=== PATIENT | female | born 1980 | race Caucasian/White ===

== ENCOUNTER 2020-09-17 08:39 | Emergency (ER) | payer OTHER ==
--- OUTSIDE RECORDS SUMMARY | 2020-09-17 08:42 | XMS REPORT | Continuity of Care Document ---
:1980 Author Organization [facility] t Address [address] [place] [address] Care Team Providers Name Role Phone Samy Saab Primary Care Physician Unavailable Liu FIGUEROAP Attending Clinician Pob1, Care Clinic Attending Clinician Unavailable JOSIAH Attending Clinician Unavailable Devora GARCIA Attending Clinician ELIO MOON Attending Clinician Unavailable ELIO MOON Admitting Clinician Unavailable Problems Condition Condition Condition Status Onset Resolution Last Treating Co mments Source Name Details Category Date Date Treatment Clinician Date History of History of Problem Resolve [facility] anxiety anxiety d ity of disorder disorder [place] [facility] History of History of Problem Resolve [facility] attention attention d ity of deficit deficit [place] hyperactiv hyperactiv Ph ysici ity ity ans disorder disorder (ADHD) (ADHD) History of History of Problem Resolve Univers Eosinophil Eosinophil d it y of ic ic [place] esophagiti esophagiti Ph ysici s s ans History of History of Problem Resolve Univers esophageal esophageal d it y of reflux reflux [place] [facility] History of History of Problem Resolve Univers hypothyroi hypothyroi d it y of dism dism [place] [facility] Breast Breast Problem Active Univers mass, mass, ity of right right [place] [facility] Allergies, Adverse Reactions, Alerts Allergy Allergy Status Severity Reaction(s) Onset Inactive Treating Comm ents Source Name Type Date Date Clinician Egg Propensi Active Itching, 2019-[address] [facility] to Nausea And 5-15 [facility] - adverse Vomiting 00:00: Medical reaction 00 Center s Peanut Propensi Active Other (See Per [facility] to Comments) 15 allergy [facility] - adverse 00:00: testing Medical reaction 00 Center s Milk Propensi Active Itching, [facility] to Nausea And 4-01 [facility] - ng adverse Vomiting 00:00: Medical Products reaction 00 Center s Lactase Drug Active Itching VOMITING [facility] Allergy 16 [facility] - 00:00: Medical 00 Center Other Propensi Active EGG [facility] ty to 08-09 YOLK-ITCH [facility] - adverse 00:00: ING AND Medical reaction 00 VOMITING Center s Hydrocod Drug Active Itching WIDE [facility] one-Acet Allergy 08-09 AWAKE-"WI [facility] - aminophe 00:00: RED" Medical n 00 Center Family History Family Member Diagnosis Comments Start Date Stop Date Source Mother Family history of [facility] [place] malignant neoplasm of Phy sicians breast Natural father Unremarkable [facility] History Social Habit Start Date Stop Date Quantity Comments Source History [facility] - Alcohol Std Drinks Medica l [place] History [facility] - Alcohol Binge Medical [facility] ter Sex Assigned At [facility] Tobacco use and 2018-11-10 2018-11-10 Never used [facility] - exposure 00:00:00 00:00:[address] [facility] Alcohol intake 2018-11-10 2018-11-10 [facility] 00:[facility] 00:00:00 non-drinker of Medical nter alcohol (finding) History SDWY 2018-11-05 2018-11-[address] [facility] - Alcohol Frequency 00:00:00 00:00:[address] [facility] Smoking Status Start Date Stop Date Source Never smoker [facility] M edical [place] Medications Ordered Filled Start Stop Current Ordering Indication Dosage Frequency Signature Comments Components Source Medication Medication Date Date Medication? Clinician (SIG) Name Name potassium Yes 8meq QD Take [address] chloride 5-20 by mouth [facility] - (KLOR-CON) 09:22: daily. Medic al 8 MEQ CR 46 [place] tablet dextroamphe 2019-0 Yes [id number] Take by [facility] tamine-amph 5-20 [id number] mouth 3 [facility] - etamine 09:22: 3D (three) Medical (AMPHETAMIN 46 times Center E-DEXTROAMP daily. HETAMINE) 20 mg Tab cetirizine Yes 10mg QD Take [address] (ZYRTEC) 10 5-20 by mouth [facility] - MG tablet 09:22: daily. Medica l 46 Center pantoprazol 0 Yes 40mg Q.5D Take [address] [facility] e 5-20 by mouth 2 [facility] - (PROTONIX) 09:22: (two) Medica l 40 MG 46 times Center tablet daily. medroxyPROG Yes 150mg Inject [address] ESTERone 5-20 mg [facility] - (DEPO-PROVE 09:22: intramuscu Medical RA) 150 46 larly Center mg/mL every 3 injection (three) months. escitalopra Yes 10mg QD Take [address] m oxalate 5-20 by mouth [facility] - (LEXAPRO) 09:22: daily. Medica l 10 MG 46 Center tablet thyroid,por Yes 225mg QD Take [address] k (ARMOUR 5-20 mg by [facility] - THYROID 09:22: mouth Medical ORAL) 46 daily. Center ALPRAZolam Yes .5mg Take 0.[address] (XANAX) 0.5 5-20 mg by [facility] - MG tablet 09:22: mouth as Medi papo 46 needed for Center Anxiety. Synthroid Synthroid Yes Unive rs TABS TABS [facility] [place] [facility] Zyrtec TABS Zyrtec TABS Yes U nivers [facility] [place] [facility] Protonix 40 Protonix 40 Yes U nivers MG Oral MG Oral ity of Tablet Tablet [place] Delayed Delayed Physici Release Release ans Adderall Adderall Yes Univers TABS TABS [facility] [place] [facility] Xanax TABS Xanax TABS Yes Uni [facility] [place] [facility] Vital Signs Vital Name Observation Time Observation Value Comments Source BP Systolic 2019-02-09 09:16:00 152 mm[Hg] Universi ty [facility] Physician s BP Diastolic 2019-02-09 09:16:00 93 mm[Hg] [facility] [place] Phys[facility] Height 2019-02-09 09:16:00 67.5 [in_us] [facility] Physician s Weight 2019-02-09 09:16:00 239.6 [lb_av] [facility] Physician s Body Mass Index 2019-02-09 09:16:00 36.97 kg/m2 Univ rsity [facility] [place] Physician s Temperature 2019-02-09 09:16:00 97 [degF] [facility] Physician s Heart Rate 2019-02-09 09:16:00 129 /min [facility] Physician s Procedures Procedure Date / Time Performing Clinician Source Performed History of Cholecystectomy [facility] Laparoscopic Physicians History of Tonsillectomy [facility] Physicians History of Back Surgery [facility] Physicians Plan of Care Planned Activity Planned Date Details Comments Source Future Scheduled 2020-02-[address] [facility] - Test 00:00:00 (#1) [code = [facility] INFLUENZA VACCINE (#1)] Future Scheduled 2003-12-[address] [facility] - Test 00:00:00 malignant neoplasm Medical C enter of cervix (procedure) [code = 453169982] Future Scheduled [address] [facility] - Test 00:00:00 (procedure) [code = [facility] [id number]] Encounters Start End Encounter Admission Attending Care Care Encounter Source Date/Time Date/Time Type Type Clinicians Facility Department ID 2020-01-09 2020-01-09 [facility] [id number] 14:06:00 23:59:00 Encounter Venita Morejon [id number] [place] [id number] [facility] [id number] 2020-01-09 2020-01-09 Urgent Pob1, Acute [facility] [id number] 13:16:53 14:34:16 [facility] [id number] [place] [id number] [place] [id number] nal [address] 2019-12-17 2019-12-17 Urgent Pob1, Acute [facility] [id number] 15:36:18 16:27:29 [facility] [id number] [place] [id number] Profess [phone] nal [address] 2019-02-09 2019-02-09 Appointmen JOSIAH [facility] [id number] Univers 09:30:00 09:30:00 elisabeth MUELLER M.D. Surgery - ity of [facility] Avis Bynum M.D. [facility] 2019-01-08 2019-01-08 Office YENY Lozoya [id number] 08:23:44 12:54:11 Visit Chriss AMBULATOR [id number] Y [id number] Results Test Description Test Time Test Comments Results Result [facility] e Comments TISSUE EXAM 2018-11-26 Surgical Pathology Report 10:09:00 Case: [id number] Authorizing Provider: Gladsy Moon MD Collected: 11/07/2018 1345 Ordering Location: [facility] Endoscopy Received: 11/07/2018 1517 Services Pathologist: Tyron Hong MD Specimens: A) - Duodenum, bx B) - Biopsy, Gastric, bx C) - Distal Esophagus, distal esophagus bx D) - Biopsy, Mid-esophagus, bx E) - Proximal Esophagus, proximal esoph bx Special stains for fungal organisms (GMS, PAS) performed on block C1 (distal esophageal biopsy) are NEGATIVE.Addendum electronically signed by Tyron Hong MD on 11/26/2018 at 10:09 AMPART A DUODENUM, BIOPSY:FOCALLY ACTIVE DUODENITIS.THE VILLOUS ARCHITECTURE IS PREDOMINANTLY PRESERVED.NEGATIVE FOR INCREASED EPITHELIAL LYMPHOCYTES, GRANULOMAS, DYSPLASIA OR INVASIVE CARCINOMA.PART B GASTRIC BIOPSY:ANTRAL AND OXYNTIC MUCOSA WITH MILD NONSPECIFIC REACTIVE GASTROPATHY.NEGATIVE FOR INTESTINAL METAPLASIA, DYSPLASIA, OR INVASIVE CARCINOMA.WARTHIN STARRY STAIN FOR HELICOBACTER IS NEGATIVE.PART C DISTAL ESOPHAGEAL BIOPSY:SQUAMOUS MUCOSA WITH CHRONIC INFLAMMATION AND REACTIVE FEATURES.NEGATIVE FOR INCREASED EOSINOPHILS, DYSPLASIA, OR INVASIVE CARCINOMA.SPECIAL STAINS FOR FUNGAL ORGANISMS PENDING, ADDENDUM REPORT TO FOLLOW.PART D MID-ESOPHAGEAL BIOPSY:SQUAMOUS MUCOSA WITHOUT SIGNIFICANT HISTOPATHOLOGIC ALTERATION.NEGATIVE FOR INCREASED EOSINOPHILS, DYSPLASIA, OR INVASIVE CARCINOMA.PART E PROXIMAL ESOPHAGEAL BIOPSY:SQUAMOUS MUCOSA WITHOUT SIGNIFICANT HISTOPATHOLOGIC ALTERATION.NEGATIVE FOR INCREASED EOSINOPHILS, DYSPLASIA, OR INVASIVE CARCINOMA. Signing Pathologist Direct Phone Line: [phone] y signed by Tyron Hong MD on 11/11/2018 at 2:12 [id number], [id number] with esophagitis, eosinophilic esophagitisA. Duodenum biopsy; B. Gastric biopsy; C. Distal esophagus biopsy; D. Mid esophagus biopsy; E. Proximal esophagus biopsyThe specimen is received in five containers each labeled with the patient's information and received in formalin. Part A is received additional labeled "duodenum" and contains multiple pieces of bernal-yellow to brown tissue fragments measuring 0.4 x 0.3 x 0.3 cm in aggregate. The specimen is submitted in its entirety following filtration into a single cassette. Part B is received additional labeled "gastric biopsy" and contains two pieces of bernal-yellow to brown fragmented tissue each measuring 0.3 x 0.3 x 0.2 cm. The specimen is submitted in its entirety following filtration into a single cassette. Part C is received additional labeled "distal esophagus" and contains a single bernal-pink irregular tissue measuring 0.2 x 0.2 x 0.1 cm. The specimen is submitted in its entirety following filtration into a single cassette. Part D is received additional labeled "mid esophagus biopsy" and contains a 0.4 x 0.2 x 0.1 cm bernal-red irregular fragment of tissue that is submitted in its entirety in a single cassette following filtration.Part E is received additional labeled "proximal esophagus" and contains a single bernal-pink irregular tissue fragment measuring 0.3 x 0.2 x 0.1 cm. The specimen is submitted in its entirety following filtration into a single cassette. REc/plPERFORMED. The interpretation of this case included the use of immunohistochemistry or special stains.BLOCK B1- JORDAN STARRYBLOCK C1- GMSControl Slides Examined: In-house known positive controls were evaluated along with the test tissue. These control slides run alongside of the patients sample show appropriate staining. Internal positive and negative controls when available are evaluated Immunohistochemistry technical testing was performed at [facility], Pathology Laboratory where it was developed and its performance characteristics were determined. It has not been cleared or approved by the U.S. Food and Drug Administration. The FDA has determined that such clearance or approval is not necessary. The test is used for clinical purposes. It should not be regarded as investigational or for research. This laboratory is certified under the Clinical Laboratory Improvement Amendments of 1988 (CLIA-88) as qualified to perform high complexity clinical laboratory testing.
[2020-09-17 10:56] LABS: SARS-COV-2 RT PCR POSITIVE (NEGATIVE)
--- NOTE | 2020-09-17 11:01 | ER ---
Nurse's Notes [facility] Name: Ash Shin Age: 39 yrs Sex: Female : 1980 Arrival Date: 09/17/2020 Time: 08:43 Bed 14 Private MD: Diagnosis: Coronavirus infection, unspecified Presentation: 09/17 08:53 Chief complaint: Patient states: loss of sense of smell and taste this morning, no iw known exposure. Coronavirus screen: loss of taste or smell. Ebola Screen: Patient negative for fever greater than or equal to 101.5 degrees Fahrenheit, and additional compatible Ebola Virus Disease symptoms Patient denies exposure to infectious person. Patient denies travel to an Ebola-affected area in the 21 days before illness onset. No symptoms or risks identified at this time. Initial Sepsis Screen: Does the patient meet any 2 criteria? No. Patient's initial sepsis screen is negative. Does the patient have a suspected source of infection? No. Patient's initial sepsis screen is negative. Risk Assessment: Do you want to hurt yourself or someone else? Patient reports no desire to harm self or others. Onset of symptoms was September 17, 2020. 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 - Social history:: Smoking status: Patient denies any tobacco usage or history of. - Family history:: not pertinent. - Hospitalizations: : No recent hospitalization is reported. Screenin:45 Abuse screen: Denies threats or abuse. Nutritional screening: No deficits noted. bw Tuberculosis screening: No symptoms or risk factors identified. Fall Risk None identified. Assessment: 08:45 General: Appears in no apparent distress. Behavior is calm, cooperative, appropriate bw for age. Pain: Denies pain. Neuro: No deficits noted. Cardiovascular: No deficits noted. Respiratory: No deficits noted. GI: No deficits noted. : No deficits noted. EENT: Reports Loss of taste and smell beginning this AM. . Derm: No deficits noted. Musculoskeletal: No deficits noted. 09:52 Reassessment: Patient appears in no apparent distress at this time. No changes from bw previously documented assessment. Patient and/or family updated on plan of care and expected duration. Pain level reassessed. Patient is alert, oriented x 3, equal unlabored respirations, skin warm/dry/pink. 10:54 Reassessment: Patient appears in no apparent distress at this time. No changes from bw previously documented assessment. Patient and/or family updated on plan of care and expected duration. Pain level reassessed. Patient is alert, oriented x 3, equal unlabored respirations, skin warm/dry/pink. Vital Signs: 08:53 BP 109 / 86; Pulse 92; Resp 16; Temp 98.2; Pulse Ox 100% on R/A; Weight 108.86 kg; iw Height 5 ft. 8 in. (172.72 cm); Pain 0/10; 09:45 BP 113 / 70; Pulse 74; Resp 18; Pulse Ox 100% on R/A; Pain 0/10; bw 10:53 BP 125 / 84; Pulse 60; Resp 18; Pulse Ox 100% on R/A; bw 08:53 Body Mass Index 36.49 (108.86 kg, 172.72 cm) ED Course: 08:43 Patient arrived in ED. mr 08:45 Patient has correct armband on for positive identification. Bed in low position. Call bw light in reach. Side rails up X 1. Pulse ox on. NIBP on. Warm blanket given. 08:45 No provider procedures requiring assistance completed. Patient did not have IV access bw during this emergency room visit. 08:48 Javier Lui MD is Attending Physician. rn 08:56 Triage completed. iw 08:58 Arm band placed on. iw 09:48 Hannah Ford, VENUS is Primary Nurse. bw Administered Medications: No medications were administered Outcome: 11:00 Discharge ordered by . rn 11:07 Discharged to home ambulatory. bw 11:07 Condition: stable 11:07 Discharge instructions given to patient. 11:13 Patient left the ED. bw Signatures: Keri Barahona Brandie Myles, RN RN Javier Mathews MD MD rn Ford, VENUS Young RN bw Corrections: (The following items were deleted from the chart) 09:52 08:45 BP 113 / 70; Pulse 74bpm; Resp 18bpm; Pulse Ox 100% RA; Pain 0/10; bw bw
--- NOTE | 2020-09-17 11:01 | EDPHYS ---
Physician Documentation [facility] Name: Ash Shin Age: 39 yrs Sex: Female : 1980 Arrival Date: 09/17/2020 Time: 08:43 Bed 14 Private MD: ED Physician Javier Lui HPI: 09/17 09:13 This 39 yrs old Female presents to ER via Ambulatory with complaints of Lack rn of smell and taste. 09:13 The patient or guardian reports loss of smell and taste, + sinus pressure. Onset: The rn symptoms/episode began/occurred 4 day(s) ago. Severity of symptoms: At their worst the symptoms were mild, in the emergency department the symptoms have improved. Modifying factors: The symptoms are alleviated by nothing, the symptoms are aggravated by nothing. Associated signs and symptoms: Pertinent positives: cough, loss of taste and smell. The patient has not experienced similar symptoms in the past. The patient has not recently seen a physician. Reports sinus problems and congestion a few days ago, no fever, today noticed loss of taste and smell. No known sick contacts. . 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 - Social history:: Smoking status: Patient denies any tobacco usage or history of. - Family history:: not pertinent. - Hospitalizations: : No recent hospitalization is reported. ROS: 09:13 Constitutional: Negative for fever, chills, and weight loss, Eyes: Negative for injury, rn pain, redness, and discharge, ENT: + sinus pressure and congestion Neck: Negative for injury, pain, and swelling, Cardiovascular: Negative for chest pain, palpitations, and edema, Respiratory: Negative for shortness of breath, wheezing, and pleuritic chest pain, Abdomen/GI: Negative for abdominal pain, nausea, vomiting, diarrhea, and constipation, MS/Extremity: Negative for injury and deformity, Skin: Negative for injury, rash, and discoloration, Neuro: Negative for headache, weakness, numbness, tingling, and seizure. Exam: 09:13 Constitutional: This is a well developed, well nourished patient who is awake, alert, rn and in no acute distress. Head/Face: Normocephalic, atraumatic. Eyes: Pupils equal round and reactive to light, extra-ocular motions intact. ENT: No stridor. Neck: No masses palpated, and no cervical lymphadenopathy. Supple, full range of motion without nuchal rigidity. No Meningismus. Cardiovascular: Regular rate and rhythm. No pulse deficits. Respiratory: No increased work of breathing, no retractions or nasal flaring. Skin: Warm, dry MS/ Extremity: Pulses equal, no cyanosis. Neuro: Awake and alert, GCS 15 Vital Signs: 08:53 BP 109 / 86; Pulse 92; Resp 16; Temp 98.2; Pulse Ox 100% on R/A; Weight 108.86 kg; iw Height 5 ft. 8 in. (172.72 cm); Pain 0/10; 09:45 BP 113 / 70; Pulse 74; Resp 18; Pulse Ox 100% on R/A; Pain 0/10; bw 10:53 BP 125 / 84; Pulse 60; Resp 18; Pulse Ox 100% on R/A; bw 08:53 Body Mass Index 36.49 (108.86 kg, 172.72 cm) iw MDM: 08:48 Patient medically screened. rn 10:59 Differential Diagnosis: Influenza Upper Respiratory Infection Viral Syndrome Other rn COVID. Data reviewed: vital signs, nurses notes, lab test result(s), and as a result, I will discharge patient. Counseling: I had a detailed discussion with the patient and/or guardian regarding: the historical points, exam findings, and any diagnostic results supporting the discharge/admit diagnosis, lab results, the need for outpatient follow up, to return to the emergency department if symptoms worsen or persist or if there are any questions or concerns that arise at home. Special discussion: I discussed with the patient/guardian in detail that at this point there is no indication for admission to the hospital. It is understood, however, that if the symptoms persist or worsen the patient needs to return immediately for re-evaluation. ED course: No oxygen requirement, already feeling better, will dc home with steroids and pcp f/u. COVID +.. 09/17 10:56 Order name: COVID-19/FLU A+B EDMS Administered Medications: No medications were administered Disposition: 09/17/20 11:00 Discharged to Home. Impression: Coronavirus infection, unspecified. - Condition is Stable. - Discharge Instructions: Upper Respiratory Infection, Adult, COVID-19. - Prescriptions for Prednisone 20 mg Oral Tablet - take 1 tablet by ORAL route as directed for 14 days Take 2 tablets by mouth daily for 7 days, followed by 1 tablet by mouth daily for 7 days, total of 14 days.; 21 tablet. - Medication Reconciliation Form, Thank You Letter, Antibiotic Education, Prescription Opioid Use form. - Follow up: Private Physician; When: As needed; Reason: Recheck today's complaints, Re-evaluation by your physician. - Problem is new. - Symptoms have improved. Signatures: Dispatcher [employer] EDAK Brandie Myles RN RN iw Javier Lui MD MD rn Ford, VENUS Young RN bw Corrections: (The following items were deleted from the chart) 10:04 09:01 CORONAVIRUS+MR.LAB.BRZ ordered. [facility] EDMS 10:04 09:01 Influenza Screen (A \T\ B)+BA.LAB.BRZ ordered. [facility] EDMS 11:13 11:00 09/17/2020 11:00 Discharged to Home. Impression: Coronavirus infection, bw unspecified. Condition is Stable. Forms are Medication Reconciliation Form, Thank You Letter, Antibiotic Education, Prescription Opioid Use. Follow up: Private Physician; When: As needed; Reason: Recheck today's complaints, Re-evaluation by your physician. Problem is new. Symptoms have improved. rn
[2020-09-17 22:26] VITALS: O2SAT 100
[2020-09-17 22:27] VITALS: TEMP 98.2
[2020-09-17 22:28] VITALS: BP 125/84
== END 2020-09-17 11:13 | disposition home or self-care (01) ==
LOC: ER 08:39
DX: U07.1 COVID-19 (principal)
CPT/HCPCS: 0240U; 99283